=== PATIENT | male | born 1985 | race African-American/Black ===

== ENCOUNTER 2022-02-25 03:30 | Emergency (ER) | payer MEDICAID ==
[~2022-02-25] VITALS: Ht 180.3 cm; Wt 86.0 kg
[2022-02-25 03:34] VITALS: BP 154/92
[2022-02-25] MEDS ORDERED: ONDANSETRON HCL 4MG/2ML INJ IV STA (03:54)
[2022-02-25] MEDS ORDERED: SODIUM CHLORIDE 0.9% 1,000 ML IV ONE (04:00)
[2022-02-25 04:16] LABS: BASOPHILS % 0.3 % (0.0-2.0); HEMATOCRIT. 45.7 % (42.0-52.0); HEMOGLOBIN. 15.5 g/dL (14.0-18.0); LYMPHOCYTES % 14.1 % (20.0-50.0); MEAN CORPUSCULAR HEMOGLOBIN 30.4 pg (28.0-32.0); MEAN CORPUSCULAR VOLUME 89.7 fL (80.0-94.0); MEAN PLATELET VOLUME 9.1 fl (7.4-10.4); MONOCYTES % 9.6 % (2.0-8.0); PLATELET 213 x1000/uL (130-400); RED BLOOD CELL COUNT 5.09 mill/uL (4.7-6.1)
[2022-02-25 04:24] LABS: CHLORIDE 101 mEq/L (98-107)
[2022-02-25] MEDS ORDERED: NALO4SPR BOTHNSTRLS (05:41)
[2022-02-25] MEDS ORDERED: ONDA4TAB5 MT (05:41)
== END 2022-02-25 07:25 | disposition home or self-care (01) ==
LOC: ER 03:30
DX: R10.84 Generalized abdominal pain (principal); R11.10 Vomiting, unspecified; F19.239 Other psychoactive substance dependence with withdrawal, unspecified
CPT/HCPCS: 36415; 74176; 80053; 83605; 83690; 85025; 96361; 96374; 99284; J2405; J7030